=== PATIENT | female | born 1970 | race Caucasian/White ===

== ENCOUNTER → 2024-10-27 10:03 | Outpatient (REF) | payer OTHER, SELFPAY | LOC: WDC 10:03 | PROVIDERS: ATTENDING PHYSICIAN Obstetrics & Gynecology | DX: R92.8 Other abnormal and inconclusive findings on diagnostic imaging of breast (principal) | CPT/HCPCS: 77065 ==

== ENCOUNTER → 2024-11-07 07:09 | Outpatient (REF) | payer OTHER, SELFPAY | LOC: WDC 07:09 | PROVIDERS: ATTENDING PHYSICIAN Obstetrics & Gynecology | DX: R92.1 Mammographic calcification found on diagnostic imaging of breast (principal) | CPT/HCPCS: 88305; 19081; 76098; A4648 ==

== ENCOUNTER → 2024-11-21 18:36 | Outpatient (REF) | payer OTHER, SELFPAY | LOC: MRI 3T 18:36 | PROVIDERS: ATTENDING PHYSICIAN Surgery; FAMILY PHYSICIAN Family Medicine | DX: D05.12 Intraductal carcinoma in situ of left breast (principal) | CPT/HCPCS: 77049; A9585 ==

== ENCOUNTER → 2024-12-02 14:55 | Outpatient (REF) | payer OTHER, SELFPAY | LOC: WDC 14:55 | PROVIDERS: ATTENDING PHYSICIAN Surgery | DX: R92.8 Other abnormal and inconclusive findings on diagnostic imaging of breast (principal) | CPT/HCPCS: 76642 ==

== ENCOUNTER → 2024-12-15 08:47 | Outpatient (REF) | payer OTHER, SELFPAY | LOC: WDC 08:47 | PROVIDERS: ATTENDING PHYSICIAN Surgery | DX: N63.22 Unspecified lump in the left breast, upper inner quadrant (principal) | CPT/HCPCS: 88305; 19083; 88341; 88360; A4648 ==

== ENCOUNTER → 2025-01-19 09:16 | Outpatient (REF) | payer OTHER, SELFPAY | LOC: WDC 09:16 | PROVIDERS: ATTENDING PHYSICIAN Surgery | DX: D05.92 Unspecified type of carcinoma in situ of left breast (principal) | CPT/HCPCS: 38792; A9541 ==

== ENCOUNTER 2025-01-20 10:46 | Day surgery (SDC) | payer OTHER, SELFPAY ==
[2025-01-09 08:58] LABS: Hematocrit 40.6 % (37.0-47.0); Hemoglobin 13.9 g/dL (12.0-16.0); Mean Corp Hgb Conc. 34.2 g/dL (33.0-37.0); Mean Corpuscular Hgb 30.5 pg (27.0-31.0); Mean Platelet Volume 10.7 fL (7.4-10.4); Platelet Count 233 10^3/uL (130-400); Red Blood Cell Count 4.56 10^6/uL (4.20-5.40); White Blood Cell Count 4.3 10^3/uL (4.8-10.8)
[2025-01-09 09:49] LABS: ALT (SGPT) 14 U/L (0-35); AST (SGOT) 20 U/L (14-36); Albumin 4.4 g/dl (3.5-5.0); Alkaline Phosphatase 48 U/L (38-126); Blood Urea Nitrogen 17 mg/dl (7-17); Calcium 9.8 mg/dl (8.4-10.2); Carbon Dioxide 30 mmol/L (22-30); Chloride 109 mmol/L (98-107); Glucose 88 mg/dl (70-99); Potassium 4.4 mmol/L (3.5-5.1); Sodium 144 mmol/L (135-145); Total Bilirubin 0.9 mg/dl (0.2-1.3); Total Protein 7.1 g/dl (6.3-8.2); eGFR > 60.00
[2025-01-09 14:03] LABS: Vitamin D, 25-OH*** 45.1 ng/mL (30-80)
[2025-01-20] VITALS (10 sets, daily range): BP systolic 20–125; BP diastolic 60–77; BMI 24.0
[2025-01-20] MEDS: TYLENOL 1000 MG PO ×2 (11:31→20:39)
[2025-01-20] MEDS: NORMOSOL-R/PLASMALYTE-A 1000 IV (11:33)
[2025-01-20] MEDS: LOVENOX 40 MG SC (13:03)
--- NOTE | 2025-01-20 18:07 | W.IMMPOSTOP ---
Surgical Immed Post Op Note
-
Primary Surgeon: JAYLAN Ansari MD
Assisting Surgeon:
Pre-op Diagnosis: Breast CA
Post-op Diagnosis: Same
Procedure Performed: Bilateral immediate breast reconstruction with tissue expanders
Anesthesia Type: GA
Specimen / Cultures: Per Dr. Stein
Estimated Blood Loss: 30cc
Complications: None
Operative Findings: As expected
--- NOTE | 2025-01-20 18:07 | OR.RPT ---
Operative Report
Operative Report
Surgeon: JAYLAN Ansari MD
Preoperative diagnosis: Breast cancer
Postoperative diagnosis: Same
Procedure:
1. Bilateral immediate breast reconstruction with prepectoral tissue expanders
2. Spy angiography
Complications: None
Anesthesia: General
EBL: 30cc
[employer] size: 12 cm
Indications for procedure: Patient was referred to me by Dr. Stein with a recent diagnosis of breast cancer. She was planned to undergo bilateral mastectomy. We discussed her options for breast reconstruction at length including implant based
and autologous options. The patient opted for immediate reconstruction with tissue expanders. She understands that the final reconstruction will be staged. We also discussed the potential use of ADM and spy angiography. Risks include
reconstructive failure, capsular contracture, infection, delayed wound healing, mastectomy skin flap necrosis, hematoma, seroma and need for repeat procedure. Patient understood these risks and desired to proceed. Consents were signed accordingly.
Procedure in detail: Patient was identified the preoperative area and the surgical site was confirmed to be the bilateral breast. All questions were answered and consents were confirmed. Patient was then sat upright and normal anatomical landmarks
were marked including midline and inframammary fold. Patient was then taken back to the operating room placed supine on the table. She was prepped and draped in the usual sterile fashion using ChloraPrep solution. A Mclaughlin catheter was placed. A
timeout for patient safety was performed was confirmed that bilateral SCDs were in place and preoperative antibiotics administered. The procedure began with Dr. Stein first performing the mastectomy. Her op report will be dictated separately.
When I entered the procedure, the first sided mastectomy had been completed. As such I inspected the wound bed of the chest wall and ensured meticulous hemostasis. The base width was measured and appropriate tissue valve mechanic was selected. The
valve mechanic was then sutured to the chest wall with a series of 2-0 silk sutures. Pectoralis and intercostal blocks were performed with Marcaine. 2 drains were then placed in the preaxial area line with a long subcutaneous tunnel and sutured in place
with 2-0 Prolene sutures. The wound was irrigated with double antibiotic solution and dilute Betadine. The mastectomy incisions were then closed with a series of 3-0 Vicryl's in the deep subcutaneous tissues followed by 3-0 and 4-0 Monocryl's in
the deep dermis and superficial skin.
Attention was then placed on the contralateral side after completion of the mastectomy. The exact same procedure was performed. An valve mechanic of the same size was opened and sutured to the chest wall using 2-0 silks. Pectoralis and intercostal
blocks were performed. Meticulous hemostasis was ensured and the wound was irrigated with combination of double antibiotic solution consisting of Ancef and gentamicin as well as dilute Betadine. The wound was closed in layers with 3-0 Vicryl
followed by 3-0 Monocryl and 4-0 Monocryl superficial skin.
Spy angiography was performed after closure to ensure adequate vascularity of the bilateral mastectomy flaps. This was confirmed. The wounds were dressed accordingly and a supportive bra was placed. The patient was extubated taken to the PACU for
further care. All counts were correct at the end the case was performed out complication.
--- NOTE | 2025-01-20 18:11 | W.IMMPOSTOP ---
Surgical Immed Post Op Note
-
Primary Surgeon: Sarita
Assisting Surgeon: None
Pre-op Diagnosis: Left breast DCIS
Post-op Diagnosis: Same
Procedure Performed: bilateral nipple sparing mastectomy and left sentinel lymph node mapping and biopsy
Anesthesia Type: GET
Specimen / Cultures: bilateral breasts, left sentinel node, left retroareolar button
Estimated Blood Loss: 25cc
Complications: None
Operative Findings: neg node
--- NOTE | 2025-01-20 18:13 | OR.RPT ---
Operative Report
Operative Report
Date of surgery: 01/16/2025
Surgeon: Sarita
Preoperative diagnosis: Left breast DCIS
Postoperative diagnosis: Same
Procedure bilateral nipple sparing mastectomies and left sentinel lymph node mapping and biopsy
The patient is a 54-year-old female who had extensive DCIS of the left breast diagnosed on routine imaging. She opted for surgical treatment with mastectomy and decided on undergoing bilateral mastectomies and reconstruction. She will have tissue
expanders placed and have delayed autologous flap reconstruction performed at a later date.
Patient presented to same-day surgical services and was prepped. DVT and antibiotic prophylaxis were provided and she was taken to the operating room. In the supine position general anesthesia was induced. A Mclaughlin catheter was inserted under
aseptic technique. Both breasts and chest were prepped and draped in usual sterile fashion. Plastic surgery had marked the incisions in the inframammary fold.
I began on the right side which was the prophylactic side. An inframammary incision was made sharply with the blade. Dissection was carried down to the pectoralis fascia and the breast was elevated off the chest wall within the confines of the
borders of the breast. Then the oncoplastic plane was entered and the skin and subcutaneous tissue were elevated off the underlying breast tissue. The breast tissue was removed and a superior medial to inferior lateral dimension. Time out about
it was noted and the specimen was oriented for the pathologist and sent for permanent analysis.
Hemostasis was verified. The wound was irrigated and suction and a moist pack was placed. Plastic surgery in her to begin the reconstructive portion of the procedure.
We then moved to the left side where the same dissection was performed and the breast was removed. When the skin was elevated on the left side, the retroareolar button was sent for frozen section and was negative for any abnormal cells.
Then the axilla was entered by incising clavipectoral fascia. Using the gamma probe once sentinel node packet was encountered and excised. Feeding vessels were controlled with 3-0 silk tie. Frozen section on the node was negative.
Hemostasis was verified. This wound was irrigated and a moist pack was placed. Plastic surgery continued with the reconstructive portion of the procedure and closure. At this juncture blood loss was 25 cc.
(, left [id number])
[2025-01-20] MEDS: NEURONTIN 300 MG PO (20:39)
[2025-01-20] MEDS: ANCEF 5 IV (20:40)
[2025-01-21] MEDS: TYLENOL 1000 MG PO ×2 (01:47→08:20)
[2025-01-21 03:10] VITALS: BP 121/62
[2025-01-21] MEDS: ANCEF 5 IV ×2 (03:22→12:06)
[2025-01-21 06:04] LABS: Hematocrit 32.5 % (37.0-47.0); Hemoglobin 11.2 g/dL (12.0-16.0)
--- NOTE | 2025-01-21 06:07 | PTCARENOTE ---
late entry: 01/20 2015 received pt from the PACU. pt AAOx3, pt states she has minimal pain and would like to only take tylenol. 4 ELSA drains with sutures intact, JPs draining sanganious fluid, see I/O for output. dsg to b/l breast C/D/I, surgery bra
in place. pt oob x1 assist. oriented to room and call iniguez. Inst on POC and pain management. pt verb understanding. admission assessment completed. Visiting with family at this time
[2025-01-21 06:34] LABS: Blood Urea Nitrogen 11 mg/dl (7-17); Calcium 8.7 mg/dl (8.4-10.2); Carbon Dioxide 27 mmol/L (22-30); Chloride 109 mmol/L (98-107); Estimated Creatinine Clearance 69 ml/min; Glucose 112 mg/dl (70-99); Potassium 4.3 mmol/L (3.5-5.1); Sodium 138 mmol/L (135-145); eGFR > 60.00
[2025-01-21 07:20] VITALS: BP 98/61
[2025-01-21] MEDS: NEURONTIN 300 MG PO (08:20)
--- NOTE | 2025-01-21 10:22 | CM ---
Addendum entered by Annie Rangel 01/21/25 12:12:
home with [facility] to follow for wound care.
Original Note:
Patient seen at bedside on south. Patient stated that she lives with and 2 children in a 2 story home. Patient Children with her mother and mother in law. Patient PCP is from [facility] and she uese the [facility] on in [place].
Patient stated that she would prefer using [facility] however, CM sent referral to Liaison and pending coverage of the area that she lives, liaison will confirm ability to accept. Patient stated [facility] as a secondary option. Family to transport home at
this time. CM will continue to follow for discharge planning needs.
Plan; home with [facility]; [facility] vs [facility] pending coverage in area that patient lives
[2025-01-21 11:15] VITALS: BP 100/67
--- NOTE | 2025-01-21 11:47 | VNURNOTE ---
Home Health Liaison met with patient and spouse at bedside to discuss [facility] nurse/therapy, visits, schedule and homebound status. Patient is agreeable and understands that visits at home will be 2-3 x per week to assess and teach medical /drain
management.
Patient is aware that [facility] will contact them for start of care in 1-2 days after discharge from .
[facility] referral completed in [facility].
--- NOTE | 2025-01-21 11:57 | W.DCSUMMARY ---
Discharge Summary
Discharge Data
Date of Admission: 01/20/25
Date of Discharge: 01/21/25
-
Pending Results: No
Hospital Course
Routine postop course after bilateral mastectomy and immediate reconstruction with tissue expanders.
Discharge Plan
-
Patient Disposition: Home (Routine Discharge)
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
Diet: Regular
Activity: No strenuous activity
Additional Activity: T-Humberto arms for ROM, No heavy lifting >10lbs
Driving Restrictions: Not until seen by your Dr
Bathing Restrictions: OK to Shower
Other Services: [facility]
Wound Care: Compressive bra, strip and record drain output twice daily
Referrals:
Raj Bobby MD [Family Provider, [facility]]
Prescriptions:
New
cefadroxil 500 mg capsule
500 mg PO BID Qty: 42 0RF
acetaminophen [Tylenol Extra Strength] 500 mg Tablet
1,000 mg PO Q6H 30 Days Qty: 240 0RF
ibuprofen 200 mg tablet
600 mg PO Q6H PRN (Reason: Pain) Qty: 60 0RF
Continued
Prebiotic - Seed
1 tab PO DAILY
Women's Multivitamin
1 tab PO DAILY
calcium
1 tab PO DAILY
Discharge Date and Time
Print Language: SERBIAN
--- NOTE | 2025-01-21 12:05 | W.PN.PLAS ---
Progress Note
Subjective Data
Doing well
Minimal pain
Denies SOB
Objective Data
Vital Signs
Temp Pulse Resp BP Pulse Ox
98.0 F 75 16 100/67 97
01/21/25 11:15 01/21/25 11:15 01/21/25 11:15 01/21/25 11:15 01/21/25 11:15
Intake and Output
01/20/25 01/21/25 01/22/25
06:59 06:59 06:59
Intake Total 1080 / 1080
Output Total 760 / 760 70 / 70
Balance 320 / 320 -70 / -70
Intake:
Oral fluids 1080 / 1080
Output:
Drain Output (Total) 460 / 460 70 / 70
Left Breast A 250 / 250 /
Left Breast B
Right Breast C 105 / 105
Right Breast D 80 / 80
Urine, Mclaughlin 300 / 300
Other:
Number of approximated MODERATE 2
amounts of urine
Number of approximated LARGE 1
amounts of urine
How many times incontinent 1
MODERATE amount urine
PEX:
NAD
No increased WOB
bilateral expanders in place
no undrained collections
dressings intact
drains serosang with appropriate output
Lab Results
01/21/25 05:27
01/21/25 05:27
Assessment / Plan
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
Home today with VN
--- NOTE | 2025-01-21 13:25 | PTCARENOTE ---
pt discharged home w/ [facility]N. Reviewed discharge instructions with patient, family at bedside. All state understanding of instructions. IV site removed. Instruction provided regarding care of ELSA drains. Pt understanding. Left rm [id number] in wheelchair, pt
going home with family.
== END 2025-01-21 13:31 | disposition home or self-care (01) ==
LOC: SDS 10:46
PROVIDERS: ATTENDING PHYSICIAN Surgery; FAMILY PHYSICIAN Family Medicine; REFERRING PHYSICIAN Surgery Plastic and Reconstructive Surgery
DX: C50.912 Malignant neoplasm of unspecified site of left female breast (principal); Z17.0 Estrogen receptor positive status [ER+]
CPT/HCPCS: 19357; 38525; 19303; 38900; 80048; 80053; 82306; 84134; 85014; 85018; 85027; 88305; 88307; 88331; 88332; 88341; 88342; 88360; 93005; C1789; L8000

== ENCOUNTER → 2025-03-06 08:30 | Outpatient (REF) | payer OTHER, SELFPAY | LOC: RAD 08:30 | PROVIDERS: ATTENDING PHYSICIAN Surgery Plastic and Reconstructive Surgery; FAMILY PHYSICIAN Family Medicine | DX: Z42.1 Encounter for breast reconstruction following mastectomy (principal) | CPT/HCPCS: 74174; Q9967 ==

== ENCOUNTER → 2025-03-14 09:07 | Outpatient (REF) | payer OTHER, SELFPAY | LOC: RCS 09:07 | PROVIDERS: ATTENDING PHYSICIAN Internal Medicine Hematology & Oncology; FAMILY PHYSICIAN Family Medicine | DX: C50.912 Malignant neoplasm of unspecified site of left female breast (principal); D05.11 Intraductal carcinoma in situ of right breast | CPT/HCPCS: 93306 ==

== ENCOUNTER → 2025-03-25 13:26 | Outpatient (REF) | payer OTHER, SELFPAY ==
[2025-03-25 15:32] LABS: Hematocrit 37.3 % (37.0-47.0); Hemoglobin 12.1 g/dL (12.0-16.0); Mean Corp Hgb Conc. 32.4 g/dL (33.0-37.0); Mean Corpuscular Volume 93.0 fL (81.0-99.0); Nucleated Red Blood Cells % 0 %; Platelet Count 267 10^3/uL (130-400); Red Cell Dist. Width 12.4 % (11.5-14.5)
[2025-03-25 15:42] LABS: ALT (SGPT) 15 U/L (0-35); AST (SGOT) 18 U/L (14-36); Albumin 4.1 g/dl (3.5-5.0); Alkaline Phosphatase 54 U/L (38-126); Blood Urea Nitrogen 12 mg/dl (7-17); Calcium 9.4 mg/dl (8.4-10.2); Carbon Dioxide 28 mmol/L (22-30); Chloride 109 mmol/L (98-107); Glucose 99 mg/dl (70-99); Potassium 4.8 mmol/L (3.5-5.1); Sodium 142 mmol/L (135-145); Total Protein 6.5 g/dl (6.3-8.2); eGFR > 60.00
== END ==
LOC: OIDL 13:26
PROVIDERS: ATTENDING PHYSICIAN Internal Medicine Hematology & Oncology
DX: C50.912 Malignant neoplasm of unspecified site of left female breast (principal); D05.11 Intraductal carcinoma in situ of right breast
CPT/HCPCS: 80053; 85025

== ENCOUNTER → 2025-03-26 09:33 | Outpatient (REF) | payer OTHER, SELFPAY ==
[2025-03-26 10:16] VITALS: BP 114/74; BP_SYST 64
[2025-03-26] MEDS: ANCEF 10 IV (10:24)
[2025-03-26 11:30] VITALS: BP 114/81; BP_SYST 76
[2025-03-26 11:45] VITALS: BP 115/79; BP_SYST 66
== END ==
LOC: RADI 09:33
PROVIDERS: ATTENDING PHYSICIAN Internal Medicine Hematology & Oncology; FAMILY PHYSICIAN Family Medicine
DX: C50.912 Malignant neoplasm of unspecified site of left female breast (principal)
CPT/HCPCS: 36561; 76937; 77001; 99152; 99153; C1788

== ENCOUNTER → 2025-03-31 08:52 | Outpatient (REF) | payer OTHER, SELFPAY ==
[2025-03-31 09:31] LABS: Hematocrit 41.1 % (37.0-47.0); Hemoglobin 13.4 g/dL (12.0-16.0); Mean Corp Hgb Conc. 32.6 g/dL (33.0-37.0); Mean Corpuscular Volume 92.2 fL (81.0-99.0); Nucleated Red Blood Cells % 0 %; Platelet Count 309 10^3/uL (130-400); Red Cell Dist. Width 12.0 % (11.5-14.5)
[2025-03-31 10:05] LABS: ALT (SGPT) 29 U/L (0-35); AST (SGOT) 24 U/L (14-36); Albumin 4.6 g/dl (3.5-5.0); Alkaline Phosphatase 53 U/L (38-126); Blood Urea Nitrogen 20 mg/dl (7-17); Calcium 9.9 mg/dl (8.4-10.2); Carbon Dioxide 28 mmol/L (22-30); Chloride 105 mmol/L (98-107); Glucose 77 mg/dl (70-99); Potassium 4.8 mmol/L (3.5-5.1); Sodium 140 mmol/L (135-145); Total Protein 7.4 g/dl (6.3-8.2); eGFR > 60.00
== END ==
LOC: REG 08:52
PROVIDERS: ATTENDING PHYSICIAN Internal Medicine Hematology & Oncology; FAMILY PHYSICIAN Family Medicine
DX: C50.912 Malignant neoplasm of unspecified site of left female breast (principal); D05.11 Intraductal carcinoma in situ of right breast
CPT/HCPCS: 36415; 80053; 85025

== ENCOUNTER 2025-04-28 11:26 | Outpatient (RCR) | payer OTHER, SELFPAY ==
[2025-04-07 11:46] VITALS: BP 113/78
[2025-04-07 12:12] LABS: Hematocrit 37.3 % (37.0-47.0); Hemoglobin 12.6 g/dL (12.0-16.0); Mean Corp Hgb Conc. 33.8 g/dL (33.0-37.0); Mean Corpuscular Volume 89.7 fL (81.0-99.0); Platelet Count 367 10^3/uL (130-400); Red Cell Dist. Width 11.7 % (11.5-14.5)
[2025-04-07 13:28] LABS: ALT (SGPT) 31 U/L (0-35); AST (SGOT) 19 U/L (14-36); Albumin 4.5 g/dl (3.5-5.0); Alkaline Phosphatase 59 U/L (38-126); Blood Urea Nitrogen 13 mg/dl (7-17); Calcium 9.9 mg/dl (8.4-10.2); Carbon Dioxide 29 mmol/L (22-30); Chloride 105 mmol/L (98-107); Glucose 91 mg/dl (70-99); Potassium 4.5 mmol/L (3.5-5.1); Sodium 141 mmol/L (135-145); Total Protein 7.2 g/dl (6.3-8.2); eGFR > 60.00
[2025-04-15 15:08] VITALS: BP 125/86
[2025-04-15 15:32] LABS: Hematocrit 37.4 % (37.0-47.0); Hemoglobin 12.6 g/dL (12.0-16.0); Mean Corp Hgb Conc. 33.7 g/dL (33.0-37.0); Mean Corpuscular Volume 90.6 fL (81.0-99.0); Platelet Count 372 10^3/uL (130-400); Red Cell Dist. Width 11.9 % (11.5-14.5)
[2025-04-15 16:15] LABS: ALT (SGPT) 19 U/L (0-35); AST (SGOT) 17 U/L (14-36); Albumin 4.4 g/dl (3.5-5.0); Alkaline Phosphatase 60 U/L (38-126); Blood Urea Nitrogen 14 mg/dl (7-17); Calcium 9.8 mg/dl (8.4-10.2); Carbon Dioxide 28 mmol/L (22-30); Chloride 105 mmol/L (98-107); Glucose 138 mg/dl (70-99); Potassium 4.2 mmol/L (3.5-5.1); Sodium 139 mmol/L (135-145); Total Protein 7.1 g/dl (6.3-8.2); eGFR > 60.00
[2025-04-21 10:04] VITALS: BP 114/73
[2025-04-21 10:24] LABS: Hematocrit 36.2 % (37.0-47.0); Hemoglobin 11.9 g/dL (12.0-16.0); Mean Corp Hgb Conc. 32.9 g/dL (33.0-37.0); Mean Corpuscular Volume 92.3 fL (81.0-99.0); Platelet Count 305 10^3/uL (130-400); Red Cell Dist. Width 12.0 % (11.5-14.5)
[2025-04-21 11:17] LABS: ALT (SGPT) 20 U/L (0-35); AST (SGOT) 19 U/L (14-36); Albumin 4.2 g/dl (3.5-5.0); Alkaline Phosphatase 48 U/L (38-126); Blood Urea Nitrogen 16 mg/dl (7-17); Calcium 9.8 mg/dl (8.4-10.2); Carbon Dioxide 26 mmol/L (22-30); Chloride 107 mmol/L (98-107); Glucose 127 mg/dl (70-99); Potassium 4.4 mmol/L (3.5-5.1); Sodium 140 mmol/L (135-145); Total Protein 6.9 g/dl (6.3-8.2); eGFR > 60.00
[2025-04-28 11:36] VITALS: BP 106/69
[2025-04-28 11:57] LABS: Hematocrit 35.1 % (37.0-47.0); Hemoglobin 11.7 g/dL (12.0-16.0); Mean Corp Hgb Conc. 33.3 g/dL (33.0-37.0); Mean Corpuscular Volume 91.2 fL (81.0-99.0); Platelet Count 290 10^3/uL (130-400); Red Cell Dist. Width 12.5 % (11.5-14.5)
[2025-04-28 13:29] LABS: ALT (SGPT) 16 U/L (0-35); AST (SGOT) 15 U/L (14-36); Albumin 4.0 g/dl (3.5-5.0); Alkaline Phosphatase 49 U/L (38-126); Blood Urea Nitrogen 16 mg/dl (7-17); Calcium 9.3 mg/dl (8.4-10.2); Carbon Dioxide 28 mmol/L (22-30); Chloride 108 mmol/L (98-107); Glucose 105 mg/dl (70-99); Potassium 4.3 mmol/L (3.5-5.1); Sodium 141 mmol/L (135-145); Total Protein 6.3 g/dl (6.3-8.2); eGFR > 60.00
== END 2025-04-28 23:59 | disposition home or self-care (01) ==
LOC: OID 11:26
PROVIDERS: ATTENDING PHYSICIAN Internal Medicine Hematology & Oncology; FAMILY PHYSICIAN Family Medicine
DX: C50.912 Malignant neoplasm of unspecified site of left female breast (principal); D05.11 Intraductal carcinoma in situ of right breast
CPT/HCPCS: 80053; 85025

== ENCOUNTER 2025-05-26 12:50 | Outpatient (RCR) | payer OTHER, SELFPAY ==
[2025-05-05 15:10] VITALS: BP 120/80
[2025-05-05 15:24] LABS: Hematocrit 35.7 % (37.0-47.0); Hemoglobin 11.8 g/dL (12.0-16.0); Mean Corp Hgb Conc. 33.1 g/dL (33.0-37.0); Mean Corpuscular Volume 91.1 fL (81.0-99.0); Platelet Count 291 10^3/uL (130-400); Red Cell Dist. Width 12.9 % (11.5-14.5)
[2025-05-05 16:00] LABS: ALT (SGPT) 19 U/L (0-35); AST (SGOT) 18 U/L (14-36); Albumin 4.2 g/dl (3.5-5.0); Alkaline Phosphatase 46 U/L (38-126); Blood Urea Nitrogen 16 mg/dl (7-17); Calcium 9.6 mg/dl (8.4-10.2); Carbon Dioxide 28 mmol/L (22-30); Chloride 106 mmol/L (98-107); Glucose 116 mg/dl (70-99); Potassium 4.0 mmol/L (3.5-5.1); Sodium 139 mmol/L (135-145); Total Protein 6.7 g/dl (6.3-8.2); eGFR > 60.00
[2025-05-12 10:27] VITALS: BP 114/80
[2025-05-12 10:36] LABS: Hematocrit 34.7 % (37.0-47.0); Hemoglobin 11.5 g/dL (12.0-16.0); Mean Corp Hgb Conc. 33.1 g/dL (33.0-37.0); Mean Corpuscular Volume 92.0 fL (81.0-99.0); Platelet Count 312 10^3/uL (130-400); Red Cell Dist. Width 13.0 % (11.5-14.5)
[2025-05-12 11:56] LABS: ALT (SGPT) 20 U/L (0-35); AST (SGOT) 17 U/L (14-36); Albumin 4.0 g/dl (3.5-5.0); Alkaline Phosphatase 44 U/L (38-126); Blood Urea Nitrogen 10 mg/dl (7-17); Calcium 9.3 mg/dl (8.4-10.2); Carbon Dioxide 27 mmol/L (22-30); Chloride 109 mmol/L (98-107); Glucose 90 mg/dl (70-99); Potassium 4.7 mmol/L (3.5-5.1); Sodium 140 mmol/L (135-145); Total Protein 6.5 g/dl (6.3-8.2); eGFR > 60.00
[2025-05-19 10:35] VITALS: BP 119/74
[2025-05-19 10:36] LABS: Hematocrit 35.0 % (37.0-47.0); Hemoglobin 11.8 g/dL (12.0-16.0); Mean Corp Hgb Conc. 33.7 g/dL (33.0-37.0); Mean Corpuscular Volume 91.1 fL (81.0-99.0); Platelet Count 300 10^3/uL (130-400); Red Cell Dist. Width 13.0 % (11.5-14.5)
[2025-05-19 11:50] LABS: ALT (SGPT) 16 U/L (0-35); AST (SGOT) 17 U/L (14-36); Albumin 4.2 g/dl (3.5-5.0); Alkaline Phosphatase 44 U/L (38-126); Blood Urea Nitrogen 11 mg/dl (7-17); Calcium 9.5 mg/dl (8.4-10.2); Carbon Dioxide 26 mmol/L (22-30); Chloride 109 mmol/L (98-107); Glucose 93 mg/dl (70-99); Potassium 4.5 mmol/L (3.5-5.1); Sodium 142 mmol/L (135-145); Total Protein 6.8 g/dl (6.3-8.2); eGFR > 60.00
[2025-05-26 13:38] LABS: Hematocrit 37.3 % (37.0-47.0); Hemoglobin 12.4 g/dL (12.0-16.0); Mean Corp Hgb Conc. 33.2 g/dL (33.0-37.0); Mean Corpuscular Volume 91.2 fL (81.0-99.0); Platelet Count 304 10^3/uL (130-400); Red Cell Dist. Width 13.1 % (11.5-14.5)
[2025-05-26 14:26] LABS: ALT (SGPT) 19 U/L (0-35); AST (SGOT) 18 U/L (14-36); Albumin 4.4 g/dl (3.5-5.0); Alkaline Phosphatase 49 U/L (38-126); Blood Urea Nitrogen 14 mg/dl (7-17); Calcium 9.6 mg/dl (8.4-10.2); Carbon Dioxide 25 mmol/L (22-30); Chloride 103 mmol/L (98-107); Glucose 146 mg/dl (70-99); Potassium 4.1 mmol/L (3.5-5.1); Sodium 135 mmol/L (135-145); Total Protein 7.1 g/dl (6.3-8.2); eGFR > 60.00
== END 2025-05-27 11:33 | disposition home or self-care (01) ==
LOC: OID 12:50
PROVIDERS: ATTENDING PHYSICIAN Internal Medicine Hematology & Oncology; FAMILY PHYSICIAN Family Medicine
DX: C50.912 Malignant neoplasm of unspecified site of left female breast (principal); D05.11 Intraductal carcinoma in situ of right breast
CPT/HCPCS: 36591; 80053; 85025; 96523

== ENCOUNTER 2025-06-16 09:58 | Outpatient (RCR) | payer OTHER, SELFPAY ==
[2025-06-02 10:11] VITALS: BP 102/67
[2025-06-02 10:29] LABS: Hematocrit 35.0 % (37.0-47.0); Hemoglobin 11.7 g/dL (12.0-16.0); Mean Corp Hgb Conc. 33.4 g/dL (33.0-37.0); Mean Corpuscular Volume 91.9 fL (81.0-99.0); Platelet Count 279 10^3/uL (130-400); Red Cell Dist. Width 13.4 % (11.5-14.5)
[2025-06-02 11:58] LABS: ALT (SGPT) 19 U/L (0-35); AST (SGOT) 18 U/L (14-36); Albumin 4.1 g/dl (3.5-5.0); Alkaline Phosphatase 47 U/L (38-126); Blood Urea Nitrogen 16 mg/dl (7-17); Calcium 9.6 mg/dl (8.4-10.2); Carbon Dioxide 30 mmol/L (22-30); Chloride 104 mmol/L (98-107); Glucose 120 mg/dl (70-99); Potassium 4.2 mmol/L (3.5-5.1); Sodium 136 mmol/L (135-145); Total Protein 6.7 g/dl (6.3-8.2); eGFR > 60.00
[2025-06-09 10:36] LABS: Hematocrit 35.1 % (37.0-47.0); Hemoglobin 11.7 g/dL (12.0-16.0); Mean Corp Hgb Conc. 33.3 g/dL (33.0-37.0); Mean Corpuscular Volume 91.6 fL (81.0-99.0); Platelet Count 287 10^3/uL (130-400); Red Cell Dist. Width 13.7 % (11.5-14.5)
[2025-06-09 10:46] VITALS: BP 109/77
[2025-06-09 11:34] LABS: ALT (SGPT) 45 U/L (0-35); AST (SGOT) 27 U/L (14-36); Albumin 4.1 g/dl (3.5-5.0); Alkaline Phosphatase 44 U/L (38-126); Blood Urea Nitrogen 14 mg/dl (7-17); Calcium 9.1 mg/dl (8.4-10.2); Carbon Dioxide 27 mmol/L (22-30); Chloride 105 mmol/L (98-107); Glucose 131 mg/dl (70-99); Potassium 4.1 mmol/L (3.5-5.1); Sodium 139 mmol/L (135-145); Total Protein 6.6 g/dl (6.3-8.2); eGFR > 60.00
[2025-06-16 10:00] VITALS: BP 110/69
[2025-06-16] MEDS: CATHFLO/ACTIVASE 2 MG INTRACATH (10:25)
[2025-06-16 11:19] LABS: Hematocrit 34.1 % (37.0-47.0); Hemoglobin 11.2 g/dL (12.0-16.0); Mean Corp Hgb Conc. 32.8 g/dL (33.0-37.0); Mean Corpuscular Volume 95.0 fL (81.0-99.0); Platelet Count 330 10^3/uL (130-400); Red Cell Dist. Width 13.7 % (11.5-14.5)
--- NOTE | 2025-06-16 12:08 | PTCARENOTE ---
1025: pt with no blood return from right sc port despite multiple attempts, flushing with ease; cath-lillie ordered and given at 1025;
1110: +blood return noted from right sc port; labs drawn and port de-accessed.
[2025-06-16 12:25] LABS: ALT (SGPT) 17 U/L (0-35); AST (SGOT) 18 U/L (14-36); Albumin 4.1 g/dl (3.5-5.0); Alkaline Phosphatase 45 U/L (38-126); Blood Urea Nitrogen 11 mg/dl (7-17); Calcium 9.3 mg/dl (8.4-10.2); Carbon Dioxide 27 mmol/L (22-30); Chloride 105 mmol/L (98-107); Glucose 135 mg/dl (70-99); Potassium 4.3 mmol/L (3.5-5.1); Sodium 139 mmol/L (135-145); Total Protein 6.9 g/dl (6.3-8.2); eGFR > 60.00
== END 2025-06-17 10:36 | disposition home or self-care (01) ==
LOC: OID 09:58
PROVIDERS: ATTENDING PHYSICIAN Internal Medicine Hematology & Oncology; FAMILY PHYSICIAN Family Medicine
DX: C50.912 Malignant neoplasm of unspecified site of left female breast (principal); D05.11 Intraductal carcinoma in situ of right breast (principal); Z17.1 Estrogen receptor negative status [ER-]
CPT/HCPCS: 36591; 80053; 85025; 96523; J2997

== ENCOUNTER → 2025-06-22 13:36 | Outpatient (REF) | payer OTHER, SELFPAY | LOC: RCS 13:36 | PROVIDERS: ATTENDING PHYSICIAN Internal Medicine Hematology & Oncology; FAMILY PHYSICIAN Family Medicine | DX: C50.912 Malignant neoplasm of unspecified site of left female breast (principal); D05.11 Intraductal carcinoma in situ of right breast | CPT/HCPCS: 93306; 93356 ==

== ENCOUNTER → 2025-07-01 16:59 | Outpatient (REF) | payer OTHER, SELFPAY | LOC: CLAB 16:59 | PROVIDERS: ATTENDING PHYSICIAN Surgery Plastic and Reconstructive Surgery | DX: C50.919 Malignant neoplasm of unspecified site of unspecified female breast (principal); L76.82 Other postprocedural complications of skin and subcutaneous tissue | CPT/HCPCS: 87070; 87205 ==

== ENCOUNTER → 2025-07-06 12:00 | Outpatient (REF) | payer OTHER, SELFPAY | LOC: CLAB 12:00 | PROVIDERS: ATTENDING PHYSICIAN Surgery Plastic and Reconstructive Surgery | DX: L76.34 Postprocedural seroma of skin and subcutaneous tissue following other procedure (principal) | CPT/HCPCS: 87070; 87205 ==

== ENCOUNTER → 2025-07-13 10:00 | Outpatient (REF) | payer OTHER, SELFPAY | LOC: CLAB 10:00 | PROVIDERS: ATTENDING PHYSICIAN Surgery Plastic and Reconstructive Surgery | DX: L76.34 Postprocedural seroma of skin and subcutaneous tissue following other procedure (principal) | CPT/HCPCS: 87015; 87070; 87147; 87205 ==

== ENCOUNTER 2025-07-28 09:51 | Outpatient (RCR) | payer OTHER, SELFPAY ==
[2025-07-07 10:07] VITALS: BP 112/83
[2025-07-07 10:28] LABS: Hematocrit 35.8 % (37.0-47.0); Hemoglobin 11.8 g/dL (12.0-16.0); Mean Corp Hgb Conc. 33.0 g/dL (33.0-37.0); Mean Corpuscular Volume 93.5 fL (81.0-99.0); Platelet Count 317 10^3/uL (130-400); Red Cell Dist. Width 12.5 % (11.5-14.5)
[2025-07-07 11:45] LABS: ALT (SGPT) 12 U/L (0-35); AST (SGOT) 18 U/L (14-36); Albumin 4.2 g/dl (3.5-5.0); Alkaline Phosphatase 76 U/L (38-126); Blood Urea Nitrogen 14 mg/dl (7-17); Calcium 9.4 mg/dl (8.4-10.2); Carbon Dioxide 28 mmol/L (22-30); Chloride 103 mmol/L (98-107); Glucose 84 mg/dl (70-99); Potassium 4.3 mmol/L (3.5-5.1); Sodium 138 mmol/L (135-145); Total Protein 7.2 g/dl (6.3-8.2); eGFR > 60.00
[2025-07-28 10:26] VITALS: BP 116/75
[2025-07-28 10:27] LABS: Hematocrit 38.9 % (37.0-47.0); Hemoglobin 12.4 g/dL (12.0-16.0); Mean Corp Hgb Conc. 31.9 g/dL (33.0-37.0); Mean Corpuscular Volume 93.3 fL (81.0-99.0); Platelet Count 308 10^3/uL (130-400); Red Cell Dist. Width 11.7 % (11.5-14.5)
[2025-07-28 11:20] LABS: ALT (SGPT) 16 U/L (0-35); AST (SGOT) 20 U/L (14-36); Albumin 4.3 g/dl (3.5-5.0); Alkaline Phosphatase 59 U/L (38-126); Blood Urea Nitrogen 15 mg/dl (7-17); Calcium 9.7 mg/dl (8.4-10.2); Carbon Dioxide 29 mmol/L (22-30); Chloride 105 mmol/L (98-107); Glucose 104 mg/dl (70-99); Potassium 4.4 mmol/L (3.5-5.1); Sodium 138 mmol/L (135-145); Total Protein 7.4 g/dl (6.3-8.2); eGFR > 60.00
== END 2025-07-29 23:59 | disposition home or self-care (01) ==
LOC: OID 09:51
PROVIDERS: ATTENDING PHYSICIAN Internal Medicine Hematology & Oncology; FAMILY PHYSICIAN Family Medicine
DX: C50.912 Malignant neoplasm of unspecified site of left female breast (principal); Z17.1 Estrogen receptor negative status [ER-]
CPT/HCPCS: 80053; 85025